=== PATIENT | female | born 1985 | race American Indian/Alaskan Native ===

== ENCOUNTER 2018-07-09 20:29 | Emergency (ER) | payer OTHER ==
--- NOTE | 2018-07-09 20:46 | Emergency Department Report ---
Chief Complaint: Arrhythmia/Palpitations Stated Complaint: HEART PAINS Time Seen by Provider: 07/09/18 20:44 - HPI History of Present Illness: ANXIETY STRESS WITH WORK AND JOB LOSS, NEW NEIGHBORS, FINANCES ETC. EATS HEALTHY NO CIG OCC ETOH NO DRUGS NO BCP/HORMONES DAD UNKNOWN MOM- HTN G MOTHER BREAST CA LMP 06/09 G1A1 MSE COMPLETED - Exam Vital Signs: Vital Signs 07/09/18 20:34 Temperature 98.5 F Pulse Rate 97 H Respiratory 20 Rate Blood Pressure 120/76 [Left] O2 Sat by Pulse 100 Oximetry MSE screening note: Focused history and physical exam performed. Due to findings the following was ordered: ED Disposition for MSE Condition: Stable
[2018-07-09 21:15] LABS: Hematocrit 41.3 % (30.3-42.9); Hemoglobin 13.9 gm/dl (10.1-14.3); Mean Corpuscular HGB Conc 34 % (30-34); Mean Corpuscular Volume 95 fl (79-97); Platelet Count 239 K/mm3 (140-440); Red Blood Count 4.34 M/mm3 (3.65-5.03); Red Cell Distribution Width 13.8 % (13.2-15.2)
[2018-07-09 21:28] LABS: BUN/Creatinine Ratio 10; Blood Urea Nitrogen 10 mg/dL (7-17); Calcium 8.7 mg/dL (8.4-10.2); Hemolysis Index 13
[2018-07-09 21:44] VITALS: BP 105/64
[2018-07-09 21:58] LABS: Bilirubin,Urine NEG (Negative); Blood,Urine NEG (Negative); Color,Urine Yellow (Yellow); Mucus,Urine 1+ /HPF; Protein,Urine <15 mg/dL mg/dL (Negative); Urobilinogen,Urine < 2.0 mg/dL (<2.0)
[2018-07-09] MEDS ORDERED: IBUPROFEN PO ONE (22:08)
[2018-07-09 22:10] LABS: Amphetamine Screen,Urine PRESUMPTIVE NEGATIVE; Benzodiazepines Screen,Urine PRESUMPTIVE NEGATIVE; Cannabinoid Screen,Urine PRESUMPTIVE NEGATIVE; Cocaine Screen,Urine PRESUMPTIVE NEGATIVE; Methadone Screen,Urine PRESUMPTIVE NEGATIVE; Opiate Screen,Urine PRESUMPTIVE NEGATIVE
[2018-07-09 22:11] LABS: HCG Qualitative,Urine Negative (Negative)
--- NOTE | 2018-07-09 22:44 | Emergency Department Report ---
ED Palpitations HPI - General Chief Complaint: Arrhythmia/Palpitations Stated Complaint: HEART PAINS Time Seen by Provider: 07/09/18 20:44 Source: patient Mode of arrival: Ambulatory Limitations: No Limitations - History of Present Illness Initial Comments: pt is a 32 y/o aaf with hx bronchitis who presents for ANXIETY, STRESS WITH WORK AND JOB LOSS, NEW NEIGHBORS, FINANCES ETC. pt denies sob no n/v no diaphoresis no fever or chills symptoms improved with rest, symptoms exacerbated by " worrying" MD Complaint: rapid heart beat, palpitations Onset/Timin -: week(s) Context: awoke with symptoms Associated Symptoms: anxiety - Related Data Previous Rx's Medication Instructions Recorded Last Taken Type Ibuprofen 800 mg PO TID PRN #30 tablet 07/09/18 Unknown Rx hydrOXYzine HCL [Atarax] 25 mg PO Q6HR PRN #30 tablet 07/09/18 Unknown Rx Allergies Allergy/AdvReac Type Severity Reaction Status Date / Time No Known Allergies Allergy Unverified 07/09/18 20:46 ED Review of Systems ROS: Stated complaint: HEART PAINS Other details as noted in HPI Constitutional: denies: chills, fever Eyes: denies: eye pain, eye discharge, vision change ENT: denies: ear pain, throat pain Respiratory: denies: cough, shortness of breath, wheezing Cardiovascular: denies: chest pain, palpitations Endocrine: no symptoms reported Gastrointestinal: denies: abdominal pain, nausea, diarrhea Genitourinary: denies: urgency, dysuria, discharge Musculoskeletal: denies: back pain, joint swelling, arthralgia Skin: denies: rash, lesions Neurological: denies: headache, weakness, paresthesias Psychiatric: anxiety. denies: depression, auditory hallucinations, homicidal thoughts, suicidal thoughts Hematological/Lymphatic: denies: easy bleeding, easy bruising ED Past Medical Hx - Past Medical History Previous Medical History?: No - Surgical History Past Surgical History?: No - Social History Smoking Status: Never Smoker Substance Use Type: None - Medications Home Medications: Home Medications Medication Instructions Recorded Confirmed Last Taken Type Ibuprofen 800 mg PO TID PRN #30 tablet 07/09/18 Unknown Rx hydrOXYzine HCL [Atarax] 25 mg PO Q6HR PRN #30 tablet 07/09/18 Unknown Rx ED Physical Exam - General Limitations: No Limitations General appearance: alert, in no apparent distress - Head Head exam: Present: atraumatic, normocephalic - Eye Eye exam: Present: normal appearance, PERRL, EOMI Pupils: Present: normal accommodation - ENT ENT exam: Present: mucous membranes moist - Neck Neck exam: Present: normal inspection, full ROM. Absent: tenderness, lymphadenopathy, thyromegaly - Respiratory Respiratory exam: Present: normal lung sounds bilaterally. Absent: respiratory distress, wheezes, stridor, chest wall tenderness - Cardiovascular Cardiovascular Exam: Present: regular rate, normal rhythm. Absent: systolic murmur, diastolic murmur, rubs, gallop - GI/Abdominal GI/Abdominal exam: Present: soft, normal bowel sounds. Absent: distended, tenderness, guarding, rebound, bruit, hernia - Rectal Rectal exam: Present: deferred - Extremities Exam Extremities exam: Present: normal inspection, full ROM, normal capillary refill - Back Exam Back exam: Present: normal inspection, full ROM. Absent: CVA tenderness (R), CVA tenderness (L), muscle spasm, paraspinal tenderness, vertebral tenderness, rash noted - Neurological Exam Neurological exam: Present: alert, oriented X3, CN II-XII intact, normal gait, reflexes normal - Psychiatric Psychiatric exam: Present: normal affect, normal mood - Skin Skin exam: Present: warm, dry, intact, normal color. Absent: rash ED Course Vital Signs 07/09/18 07/09/18 07/09/18 20:34 20:44 21:30 Temperature 98.5 F 98.5 F Pulse Rate 97 H 97 H Respiratory 20 18 18 Rate Blood Pressure 120/76 Blood Pressure 120/76 [Left] O2 Sat by Pulse 100 100 Oximetry 07/09/18 21:43 Temperature Pulse Rate 78 Respiratory 18 Rate Blood Pressure Blood Pressure 105/64 [Left] O2 Sat by Pulse 99 Oximetry ED Medical Decision Making - Lab Data Result diagrams: 07/09/18 20:56 07/09/18 20:56 Labs 07/09/18 07/09/18 07/09/18 20:56 20:56 20:56 WBC 10.2 RBC 4.34 Hgb 13.9 Hct 41.3 MCV 95 MCH 32 MCHC 34 RDW 13.8 Plt Count 239 Sodium 138 Potassium 4.1 Chloride 105.6 Carbon Dioxide 23 Anion Gap 14 BUN 10 Creatinine 1.0 Estimated GFR > 60 BUN/Creatinine Ratio 10 Glucose 79 Calcium 8.7 TSH 1.940 Urine Color Urine Turbidity Urine pH Ur Specific [place] Urine Protein Urine Glucose (UA) Urine Ketones Urine Blood Urine Nitrite Urine Bilirubin Urine Urobilinogen Ur Leukocyte Esterase Urine WBC (Auto) Urine RBC (Auto) U Epithel Cells (Auto) Urine Mucus Urine HCG, Qual Urine Opiates Screen Urine Methadone Screen Ur Barbiturates Screen Ur Phencyclidine Scrn Ur Amphetamines Screen U Benzodiazepines Scrn Urine Cocaine Screen U Marijuana (THC) Screen Drugs of Abuse Note 07/09/18 07/09/18 21:47 21:47 WBC RBC Hgb Hct MCV MCH MCHC RDW Plt Count Sodium Potassium Chloride Carbon Dioxide Anion Gap BUN Creatinine Estimated GFR BUN/Creatinine Ratio Glucose Calcium TSH Urine Color Yellow Urine Turbidity Clear Urine pH 6.0 Ur Specific [place] 1.029 Urine Protein <15 mg/dl Urine Glucose (UA) Neg Urine Ketones Neg Urine Blood Neg Urine Nitrite Neg Urine Bilirubin Neg Urine Urobilinogen < 2.0 Ur Leukocyte Esterase Tr Urine WBC (Auto) 1.0 Urine RBC (Auto) 4.0 U Epithel Cells (Auto) 2.0 Urine Mucus 1+ Urine HCG, Qual Negative Urine Opiates Screen Presumptive negative Urine Methadone Screen Presumptive negative Ur Barbiturates Screen Presumptive negative Ur Phencyclidine Scrn Presumptive negative Ur Amphetamines Screen Presumptive negative U Benzodiazepines Scrn Presumptive negative Urine Cocaine Screen Presumptive negative U Marijuana (THC) Screen Presumptive negative Drugs of Abuse Note Disclamer - EKG Data EKG shows normal: sinus rhythm Rate: normal - EKG Data Interpretation: normal EKG (ekg interp by ed attending NSR no ST Elevation no ectopy ) - Radiology Data Radiology results: report reviewed, image reviewed norlmal cxr no infiltrates no opacities - Medical Decision Making EKG normal sinus rhythm chest x-ray showed no infiltrates Heart score is 0, LEE score is 0, patient endorses symptoms are brought on by anxiety and stress which-related issues patient denies S no evidence symptoms of depression plan to harm self or other, there are no ENT symptoms is not asthma exacerbation number refill when necessary has requested anxiety patient will follow up with psychiatry tomorrow, at [facility] pt verbalized agreement and uderstanding of discharge plan. dc 'd to home in stable condition at this time. Critical care attestation.: If time is entered above; I have spent that time in minutes in the direct care of this critically ill patient, excluding procedure time. ED Disposition Clinical Impression: Anxiety Disposition: DC-01 TO HOME OR SELFCARE Is pt being admited?: No Does the pt Need Aspirin: No Condition: Stable Instructions: Anxiety (ED), Palpitations (ED) Prescriptions: hydrOXYzine HCL [Atarax] 25 mg PO Q6HR PRN #30 tablet PRN Reason: Anxiety Ibuprofen 800 mg PO TID PRN #30 tablet PRN Reason: pain [facility] Forms: Work/School Release Form(ED) Time of Disposition: 22:54
--- NOTE | 2018-07-09 22:45 | XRay Report ---
PROCEDURE: XR CHEST ROUTINE 2V TECHNIQUE: PA and lateral chest radiographs were obtained. HISTORY: palpitations COMPARISONS: None. FINDINGS: Heart: Normal. Mediastinum/Vessels: Normal. Lungs/Pleural space: Normal. Bony thorax: No acute osseous abnormality. IMPRESSION: Normal examination. This document is electronically signed by Miguelina Menard DO., July 09 2018 10:43:20 PM ET
== END 2018-07-09 23:02 | disposition home or self-care (01) ==
LOC: ED 20:29
DX: F41.9 Anxiety disorder, unspecified (principal)
CPT/HCPCS: 36415; 71046; 80048; 80307; 81001; 81025; 84443; 85027; 93005; 93010

== ENCOUNTER 2018-07-27 23:07 | Emergency (ER) | payer OTHER ==
[2018-07-27 23:16] VITALS: BP 113/70
[2018-07-27] MEDS ORDERED: DUONEB *Not for PRN Use IH ONE (23:16)
== END 2018-07-28 00:39 | disposition left against medical advice (07) ==
LOC: ED 23:07
DX: J45.909 Unspecified asthma, uncomplicated (principal); Z53.21 Procedure and treatment not carried out due to patient leaving prior to being seen by health care provider
CPT/HCPCS: 94640